=== PATIENT | male | born 1970 ===

== ENCOUNTER 2017-02-05 12:49 | Emergency (ER) | payer MEDICAID, OTHER ==
[~2017-02-05] VITALS: Ht 165.1 cm; Wt 112.4 kg
[2017-02-05 13:03] VITALS: BP 145/104; PULSE 85; RESP 20; O2SAT 96
--- NOTE | 2017-02-05 13:50 | ED.REPORT ---
HPI-General Illness Date of Service Feb 05, 2017 ED Provider: Flora Benson MD The patient is a 46-year-old gentleman presents today with complaints of abdominal distention and 10 pound weight gain over the past few weeks with "eating less". He states that the distention and discomfort is getting to the point that he is uncomfortable all of the time. He's tried multiple over-the- counter treatments such as Gas-X and Pepto-Bismol all of which have been ineffective in relieving his discomfort. He denies fever, chills, SOB, wheezing , or vomiting. He said he visited [facility] ER a few weeks ago and had a negative work up. The pt is currently homeless and is staying at the [facility]. Nursing Notes Stated Complaint: STOMACH SWELLING Chief Complaint: Male Abdominal Pain Nursing Notes Reviewed: Yes Allergies: Coded Allergies: No Known Allergies (Unverified , 02/05/17) General Time Seen by MD: 13:37 Chief Complaint Abdominal pain Hx Obtained From: Patient Arrived By: Walk-in Sudden in Onset?: No Onset Occurred: More than a week ago... (3 weeks) Symptom Duration: Since onset Location: : Abdomen Associated with: Denies: Fever, Shortness of breath, Vomiting Pertinent Negative: Pt denies other symptoms Recent Healthcare: No recent doctor visit, No recent hospitalization Similar Sx Previous: No Past Medical History Past Medical History Visited [facility] ER a few weeks ago for abd pain Past Surgical History Right wrist surgery Smoking History Never Smoker Social History Alcohol Use: "Social" Drug Use: Denies drug use Ambulatory Status Independent Review of Systems Reports abdominal distention Full Review of Systems Constitutional: Denies: Chills, Fever Respiratory: Denies: Shortness of breath, Wheezing GI: Reports: Abdominal pain, Denies: Vomiting Endocrine: Reports: Weight gain Complete sys rev & neg: except as marked. Physical Exam Vital Signs Vital Signs Date Time Temp Pulse Resp B/P Pulse Ox O2 Delivery O2 Flow Rate FiO2 02/05/17 13:03 37 85 20 145/104 96 Room Air Initial VS: Reviewed, Vital signs normal General/Constitutional: Well-developed, Well-nourished Head / Eyes: Atraumatic, Normocephalic, PERRL ENT: Mucous membranes moist, Conjunctiva normal, No scleral icterus Neck: Supple, Non-tender, Full range of motion Respiratory: Breath sounds normal, Clear to auscultation, No respiratory distress Cardiovascular: Regular rate & rhythm, Heart sounds normal, Intact distal pulses Back: No CVA tenderness Lymphatic: No lymphadenopathy Extremities: Vascular intact, Neuro intact, No swelling, No tenderness Skin: Warm, Dry, No cyanosis Neurologic: Alert, Oriented, Nonfocal Psychiatric: Mood/affect normal, Behavior normal, Normal thought content Abdomen: Atraumatic, No guarding, No rebound distended Interpretation & Diagnostics X-Ray Abdominal Interpretation IMPRESSION: No acute intra-abdominal findings. No bowel dilatation to suggest obstruction or ileus. Dictated by: Vi Love M.D. on 02/05/2017 at 14:51 Interpretation / Wet Read by: Interpret - Radiologist Re-Eval/Medical Decision Med Decision/Clinical Course 46-year-old gentleman currently living at [facility] presents with abdominal bloating and complaints of 10 pound weight increase over the last weeks. Reports being seen at [facility] emergency department in the last few weeks with similar complaints with full workup including blood work and CT scan done at that time was told he was "fine". Flatplate of the belly today demonstrates moderate amount of stool throughout the colon. He does note significant diet changes recently and has been getting most of his meals from shelters suspect that many of his symptoms are from his constipation. Discussed healthier diet options and higher fiber options. He is sent home with magnesium citrate and instructions to drink this tomorrow to see if cleaning his colon out of that will help with overall general well-being and help with diminishing the abdominal distention Time of Eval: 16:10 Patient Status: Condition improved Re-Evaluation/Progress Note: Patient rechecked. Discussed plan to discharge. Patient understands and agrees with plan. All questions addressed at this time. Counseled Regarding: Diagnosis, Lab results, Need for follow-up, When/why to return to ED Discharge & Departure Primary Impression: Constipation Constipation type: unspecified constipation type Qualified Code: K59.00 - Constipation, unspecified Disposition: Home Discharge Condition All VS Reviewed: Yes Condition: Improved Patient Instructions: Constipation (ED), High Fiber Diet (ED) Additional Instructions: Thank you for entrusting us with your care today. Take the Magnesium Citrate as directed to help you have a bowel movement. Return to the ER with fever, nausea, vomiting or any new or worsening symptoms. Referrals: NOPCP (PCP) Scribe Attestation Portions of this note were transcribed by Rita Antonio and Neil Cadet. I, Dr. Benson personally performed the history, physical exam and medical decision -making; I reviewed and confirmed the accuracy of the information in the transcribed note. Signed by: Abram Kennedy, 02/05/2017 Flora Benson MD Feb 05, 2017 13:50 Feb 05, 2017 16:00 RITA ANTONIO Feb 05, 2017 16:18
--- NOTE | 2017-02-05 14:55 | DRSVH ---
PROCEDURE: X-RAY ABDOMEN, ONE VIEW ([id number]) INDICATIONS: abdomnal distention TECHNIQUE: One view of the abdomen acquired. COMPARISON: None. FINDINGS: Surgical changes and devices: None. Bowel: Bowel gas pattern is normal. Soft tissues: No suspicious abdominal calcifications. Visualized solid organ contours appear normal in size. Bones: No suspicious bony lesions. IMPRESSION: No acute intra-abdominal findings. No bowel dilatation to suggest obstruction or ileus. Dictated by: Vi Love M.D. on 02/05/2017 at 14:51 Approved by: Vi Love M.D. on 02/05/2017 at 14:53
== END 2017-02-05 16:14 | disposition home or self-care (01) ==
LOC: SED 12:49
DX: K59.00 Constipation, unspecified (principal)